=== PATIENT | female | born 1970 | race Caucasian/White ===

== ENCOUNTER 2023-07-02 13:30 | Outpatient (AMB) | payer OTHER, SELFPAY ==
--- NOTE | 2023-07-02 13:42 | A.OFFVIS_ITS ---
Intake VS Expanded 07/02/23 13:46 07/07/23 13:12 Height 5 ft 5 in 5 ft 5 in Weight 193 lb 9.054 oz 193 lb BMI 32.2 32.1 Intake Visit Reasons: Obesity HPI Nutrition Presentation Details Pt presents for MNT for obesity. The Pt was referred by PCP, Madison Hall PA-C from [facility] Pt reports monitoring glucose because of her own concerns of pre diabetes. 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 Typical meal 1/2 ( 15 protein shake) Protein bar (240 catrina ) Dinner chicken , cauliflower green beans , vegetables ,water multivitamin on and off food frequency: fish : 0-1/day fruits 0-1/day (berries) yogurt 0-2 x/wk vegetables :4 serving /d starches > 10 serving/d ETOH/ vodka with soda 3 serving/wk Smoking: denies physical activity walking 30 min 3 times/wk AZF-Svqwasg-Pd.Jeor Equation Height 5 ft 5 in Weight 193 lb Resting Metabolic Rate 1484.67 Calculated Activity Level Sedentary Calories Needed to Maintain Weight 1781.60 Diagnosis Nutrition problem #1 food nutri know defi As related to (etiology) #1 diagnosis As evidenced by (sign/symptom) #1 knowledge deficit of diet Monitoring/Goals Nutrition problem monitoring weight Most Recent Diabetes Results: No Data to Display Assessment & Plan Assessment & Plan (1) Obesity (BMI 30.0-34.9): Code(s): E66.9 - Obesity, unspecified Plan: wt: 88 kg Est kcal needs as per MSJ: 1700 (40% carb, 30% protein/fat) Est fluid needs as per 30 ml/d: 2600 Est prot per day as per 1 g/kg bw: 88 Recommend fiber intake : 8-10 g per day and gradually increase to 25-28 g per day for women and 35-38 g for men or as tolerated Recommend sodium intake per day : less than 2000 mg Educated patient on: ( R = reviewed V = verbalizes understanding N/R = needs review N/A = not applicable * Food sources of carbohydrate, adequate serving sizes and its role in various health conditions: R * Differences between complex carbohydrates a simple carbohydrates, role of fiber in diet: R * Differences between types of fats and role in diet (mono on saturated fat fatty acids, saturated fatty acids, trans fats): R * Food sources of sodium in salt and healthy modifications for heart health in kidney health: R * Healthy plate method concept: R * Physical activity: Benefits a precaution: R V * Patient Instructions: Work on balancing your meals, following healthy plate method Have a fruits as a midmorning snack reducing on highly processed foods continue walking 3 times a week 30 minutes or more Coding Level of Care Code Nutr Indiv Intake (90203) Diagnoses Obesity (BMI 30.0-34.9) E66.9 Time Spent (min) 30
[2023-07-02 13:46] VITALS: BMI 32.2
[2023-07-07 13:12] VITALS: BMI 32.1
== END 2023-07-02 14:18 | disposition home or self-care (01) ==
PROVIDERS: PCP Physician Assistant; Visit Provider Dietitian, Registered
DX: E66.9 Obesity, unspecified (principal)

== ENCOUNTER → 2023-07-02 13:30 | Outpatient (BNVA) | payer OTHER, SELFPAY | PROVIDERS: PCP Physician Assistant; Visit Provider Dietitian, Registered | DX: E66.9 Obesity, unspecified (principal); Z68.32 Body mass index [BMI] 32.0-32.9, adult | CPT/HCPCS: 97802 ==